=== PATIENT | female | born 1970 | race Caucasian/White ===

== ENCOUNTER 2023-04-18 15:41 | Emergency (ER) | payer OTHER ==
[2023-04-18 16:06] VITALS: TEMP 97.9
--- NOTE | 2023-04-18 16:19 | ED ---
ENT HPI <Nahid Ridley - Last Filed: 04/18/23 17:50> - General Source: patient, RN notes reviewed Mode of arrival: ambulatory Limitations: no limitations <Brad Valentin - Last Filed: 04/26/23 18:24> - General Chief complaint: Dental/Oral Stated complaint: abcess tooth Time Seen by Provider: 04/18/23 16:18 - History of Present Illness Initial comments: Patient is a 52-year-old female presented ER chief complaint of left-sided molar abscess. Patient states she was recently treated about a month ago with antibiotics for same thing. Patient denies any fevers or chills. She does state it is slightly difficult to handle her own secretions denies any difficulty breathing. (Brad Valentin) - Related Data Allergies Allergy/AdvReac Type Severity Reaction Status Date / Time amoxicillin [From Augmentin] Allergy Rash/Hives Verified 04/18/23 15:51 aspirin Allergy Rash/Hives Verified 04/18/23 15:51 clavulanic acid Allergy Rash/Hives Verified 04/18/23 15:51 [From Augmentin] erythromycin base Allergy Rash/Hives Verified 04/18/23 15:51 Penicillins Allergy Rash/Hives Verified 04/18/23 15:51 Review of Systems ROS Other: All systems not noted in ROS Statement are negative. <Nahid Ridley - Last Filed: 04/18/23 17:50> ROS Other: All systems not noted in ROS Statement are negative. <Brad Valentin - Last Filed: 04/26/23 18:24> ROS Statement: Those systems with pertinent positive or pertinent negative responses have been documented in the HPI. Past Medical History Past Medical History: CVA/TIA, Hypertension Additional Past Medical History / Comment(s): brain bleed Past Surgical History: Section, Orthopedic Surgery Smoking Status: Current every day smoker <Brad Valentin - Last Filed: 04/26/23 18:24> General Exam Limitations: no limitations <Brad Valentin - Last Filed: 04/26/23 18:24> - General Exam Comments Initial Comments: Visual Physical Exam Vital signs reviewed General: Well-appearing, nontoxic, no acute distress. Head: Normocephalic, atraumatic Eyes: PERRLA, EOMI ENT: Airway patent Chest: Nonlabored breathing Skin: No visual rash, normal skin tone Neuro: Alert and oriented 3 Musculoskeletal: No gross abnormalities (Brad Valentin) Course Vital Signs 04/18/23 04/18/23 15:47 17:46 Temperature 97.9 F Pulse Rate 74 73 Respiratory 16 18 Rate Blood Pressure 158/82 170/91 O2 Sat by Pulse 98 98 Oximetry Medical Decision Making <Brad Valentin - Last Filed: 04/26/23 18:24> - Medical Decision Making I performed the quick note portion of the exam. Electronically signed by Brad Valentin PA-C (Brad Valentin) Disposition Is patient prescribed a controlled substance at d/c from ED?: No <Nahid Ridley - Last Filed: 04/18/23 17:50> <Brad Valentin - Last Filed: 04/26/23 18:24> Clinical Impression: Dental caries, Dental abscess Disposition: HOME SELF-CARE Condition: Good Instructions (If sedation given, give patient instructions): Dental Abscess (ED) Referrals: Neel Frances DDS [STAFF PHYSICIAN] - 1-2 days
[2023-04-18] MEDS ORDERED: ETODOLAC 400 MG TAB PO STA (17:49)
[2023-04-18] MEDS ORDERED: CLINDAMYCIN 150 MG CAP PO STA (17:49)
[2023-04-18] MEDS ORDERED: traMADol 50 MG TAB PO STA (17:49)
[2023-04-18] MEDS ORDERED: dexAMETHasone 2 MG TAB PO STA (17:50)
[2023-04-18 17:51] VITALS: BP 170/91; PULSE 73; RESP 18
== END 2023-04-18 18:16 | disposition home or self-care (01) ==
LOC: EC 15:41
DX: K04.7 Periapical abscess without sinus (principal); K02.9 Dental caries, unspecified; I10 Essential (primary) hypertension; F17.200 Nicotine dependence, unspecified, uncomplicated; Z88.0 Allergy status to penicillin; Z88.1 Allergy status to other antibiotic agents; Z88.6 Allergy status to analgesic agent
CPT/HCPCS: 99283 ×2; J8540